=== PATIENT | male | born 1985 | race African-American/Black ===

== ENCOUNTER 2017-09-08 11:12 | Emergency (ER) | payer MEDICAID ==
--- NOTE | 2017-09-08 11:44 | ER Document Report ---
ED General - General Chief Complaint: Bloody Stools Stated Complaint: BLOOD IN STOOL Time Seen by Provider: 09/08/17 11:35 Notes: 32-year-old male here with complaints of blood in his stools that he noted earlier today. He states that he saw some small streaks of blood in his stool and on the toilet paper however there was no blood in the toilet bowl/water. He denies any abdominal pain nausea vomiting diarrhea constipation. He also complains of some frequent urination but no dysuria hematuria discharge pain ongoing for the past 2 months. He states he went to an urgent care and they tested his urine but "I did not hear anything from them". He has not yet seen a urologist. He is sexually active with one female partner and denies any prior personal history of STDs. He denies his partner has any STDs. TRAVEL OUTSIDE OF THE [place] IN LAST 30 DAYS: No - Related Data Allergies/Adverse Reactions: No Known Allergies Allergy (Verified 09/08/17 11:34) Past Medical History - Social History Smoking Status: Current Every Day Smoker Chew tobacco use (# tins/day): No Frequency of alcohol use: None Drug Abuse: Marijuana Family History: Reviewed & Not Pertinent Patient has suicidal ideation: No Patient has homicidal ideation: No Renal/ Medical History: Denies: Hx Peritoneal Dialysis Review of Systems - Review of Systems Notes: See history of present illness for pertinent positive review of systems; otherwise all review of systems have been reviewed and are negative Physical Exam - Vital signs Vitals: Temp Pulse Resp BP Pulse Ox 98.2 F 63 16 146/81 H 100 09/08/17 11:16 09/08/17 11:16 09/08/17 11:16 09/08/17 11:16 09/08/17 11:16 - Notes Notes: PHYSICAL EXAMINATION: GENERAL: Well-appearing and in no acute distress. HEAD: Atraumatic, normocephalic. EYES: Pupils equal round and reactive to light, extraocular movements intact, sclera anicteric, conjunctiva are normal. ENT: nares patent, oropharynx clear without exudates. Moist mucous membranes. NECK: Normal range of motion, supple without lymphadenopathy LUNGS: CTAB and equal. No wheezes rales or rhonchi. HEART: Regular rate and rhythm without murmurs ABDOMEN: Soft, no tenderness. No facial grimacing/wincing upon palpation. No guarding, no rebound. GENITOURINARY: Patient declines genitourinary exam ANORECTAL: Patient declines a visual anal/rectal exam and digital rectal exam EXTREMITIES: Normal range of motion, no pitting edema. No cyanosis. NEUROLOGICAL: Cranial nerves grossly intact. Normal sensory/motor exams. PSYCH: Normal mood, normal affect. SKIN: Warm, Dry, normal turgor, no rashes or lesions noted Course - Re-evaluation Re-evalutation: 09/08/17 11:43 MEDICAL DECISION MAKING: Concern for internal hemorrhoid versus external hemorrhoid versus UTI Patient will not allow or anorectal exam Given history though, he likely has a nonthrombosed hemorrhoid Will check urinalysis rule out infection 09/08/17 12:55 UA negative and d/w pt these findings Patient understands and agrees to the plan of care - Vital Signs Vital signs: Temp Pulse Resp BP Pulse Ox 98.2 F 63 16 146/81 H 100 09/08/17 11:16 09/08/17 11:16 09/08/17 11:16 09/08/17 11:16 09/08/17 11:16 - Laboratory Laboratory results interpreted by me: 09/08/17 11:45 Urine Ascorbic Acid 40 H Discharge - Discharge Clinical Impression: Urinary frequency, Bloody stools Condition: Good Disposition: HOME, SELF-CARE Additional Instructions: You were seen in the emergency department at [facility]. You declined digital rectal exam. Use the stool softeners to decrease possible constipation. You did not have a urine infection. Please followup with your primary physician in the next few days for further management/evaluation. Please return to the emergency department for worsening of symptoms or any symptom that you deem to be concerning or life-threatening. Thank you for allowing us to be part of your care. This is your work/school note for your ER visit today. Prescriptions: Docusate Sodium [Colace 100 mg Capsule] 100 mg PO DAILY #30 capsule
[2017-09-08 12:27] LABS: APPEARANCE,URINE CLEAR; BILIRUBIN,URINE NEGATIVE (NEGATIVE); COLOR,URINE YELLOW; GLUCOSE, URINE NEGATIVE (NEGATIVE); KETONES,URINE NEGATIVE (NEGATIVE); LEUKOCYTE ESTERASE,URINE NEGATIVE (NEGATIVE); NITRITE,URINE NEGATIVE (NEGATIVE); PROTEIN,URINE NEGATIVE (NEGATIVE); URINE SPECIFIC GRAVITY 1.027; UROBILINOGEN,URINE NEGATIVE mg/dL (<2.0)
[2017-09-08 13:07] VITALS: BP 140/78
== END 2017-09-08 13:07 | disposition home or self-care (01) ==
LOC: ER 11:12
DX: K92.1 Melena (principal); R35.0 Frequency of micturition; F17.200 Nicotine dependence, unspecified, uncomplicated; F12.10 Cannabis abuse, uncomplicated
CPT/HCPCS: 81001; 82962; 99283

== ENCOUNTER 2017-11-12 08:44 | Emergency (ER) | payer MEDICAID ==
[2017-11-12] MEDS ORDERED: IBUPROFEN 800 MG TABLET PO ONE (09:17)
--- NOTE | 2017-11-12 09:22 | ER Document Report ---
ED Extremity Problem, Lower - General Chief Complaint: Leg Pain Stated Complaint: LEG PAIN Time Seen by Provider: 11/12/17 09:13 Mode of Arrival: Ambulatory Information source: Patient Notes: 32-year-old male presents to ED for complaint of left lower leg pain. He states that of last week today is Saturday he is leg was run over by a forklift. He states he continues to have some throbbing pain in his leg. Patient is alert and oriented respirations regular and unlabored speaks with full sentences and is able to ambulate with a steady gait. Patient states he can ambulate but is very painful. TRAVEL OUTSIDE OF THE [place] IN LAST 30 DAYS: No - HPI Patient complains to provider of: Injury, Pain Location: Leg Occurred: - of last Where: Outdoors Onset/Duration: Persistent Quality of pain: Throbbing Severity: Moderate Pain Level: 3 Context: Other Recent injury: Yes - Ran over by a forklift Associated symptoms: Painful ambulation Exacerbated by: Hanging down, Movement, Walking Relieved by: Elevation, Ice, Rest - Related Data Allergies/Adverse Reactions: No Known Allergies Allergy (Verified 11/12/17 09:16) Past Medical History - General Information source: Patient - Social History Smoking Status: Former Smoker Cigarette use (# per day): No Chew tobacco use (# tins/day): No Smoking Education Provided: No Frequency of alcohol use: None Drug Abuse: None Lives with: Spouse/Significant other Family History: Reviewed & Not Pertinent Patient has suicidal ideation: No Patient has homicidal ideation: No - Past Medical History Cardiac Medical History: Reports: None Pulmonary Medical History: Reports: None EENT Medical History: Reports: None Neurological Medical History: Reports: None Endocrine Medical History: Reports: None Renal/ Medical History: Reports: None GI Medical History: Reports: None Musculoskeltal Medical History: Reports Hx Musculoskeletal Trauma Skin Medical History: Reports None Psychiatric Medical History: Reports: None Traumatic Medical History: Reports: Hx Fractures - PT finger Infectious Medical History: Reports: None Surgical Hx: Negative Past Surgical History: Reports: None Review of Systems - Review of Systems Musculoskeletal: Other - Pain to the left lower leg between the knee and ankle no pain to the foot or ankle no bruising no swelling Physical Exam - Vital signs Vitals: Temp Pulse Resp BP Pulse Ox 98.6 F 62 12 129/75 H 100 11/12/17 08:49 11/12/17 08:49 11/12/17 08:49 11/12/17 08:49 11/12/17 08:49 - Extremities General upper extremity: Normal inspection, Nontender, Normal color, Normal ROM , Normal temperature General lower extremity: Normal inspection, Normal color, Normal temperature. No: Antonio's sign Calf: Tender. No: Ecchymosis, Instability, Laceration, Unable to bear weight - Painful to ambulate Ankle: Normal, Nontender Foot: Normal, Nontender Course - Re-evaluation Re-evalutation: 11/12/17 21:30 X-ray discussed with patient and written report of x-ray given to patient. Patient was instructed to follow-up with his primary doctor to use elevation ice for his pain. Patient verbalized understanding of instructions and agreement with treatment plan. - Vital Signs Vital signs: Temp Pulse Resp BP Pulse Ox 98.1 F 55 L 16 136/71 H 100 11/12/17 10:42 11/12/17 10:42 11/12/17 10:42 11/12/17 10:42 11/12/17 10:42 - Diagnostic Test Radiology reviewed: Image reviewed, Reports reviewed Discharge - Discharge Clinical Impression: Contusion of left lower leg, initial encounter Condition: Stable Disposition: HOME, SELF-CARE Additional Instructions: CONTUSION: Your injury has resulted in a contusion -- a crushing of the deep tissues. No injury to important structures was detected during the physician's exam. Contusions vary in the amount of pain they cause, and in the length of time required for healing. Typically, the area will become bruised, and will remain painful to touch for two or three weeks. However, most patients are back to working and playing within a few days. After the initial period of rest and cold-packs, your symptoms (together with the doctor's recommendations) will determine how rapidly you can get back to full activity. Usually this means "do what feels okay, but don't do things that hurt." If re-examination was recommended, it's important to follow up as instructed. Call the doctor or return any time if pain increases, if swelling becomes severe, if you develop numbness or weakness in an injured extremity, or if any other alarming symptoms occur. USE OF TYLENOL (ACETAMINOPHEN): Acetaminophen may be taken for pain relief or fever control. It's much safer than aspirin, offering a wider range of "safe" dosages. It is safe during . Some brand names are Tylenol, Panadol, Datril, Anacin 3, Tempra, and Liquiprin. Acetaminophen can be repeated every four hours. The following are maximum recommended dosages: WEIGHT Dose Drops Elixir Chewable( 80mg) (LBS.) drprs=droppers tsp=teaspoon 6 40 mg 0.4 ml (1/2) 6-11 80 mg 0.8 ml (full) tsp 1 tab 12-16 120 mg 1 1/2 drprs 3/4 tsp 1 1/2 tabs 17-23 160 mg 2 drprs 1 tsp 2 tabs 24-30 240 mg 3 drprs 1 1/2 tsp 3 tabs 30-35 320 mg 2 tsp 4 tabs 36-41 360 mg 2 1/4 tsp 4 1/2 tabs 42-47 400 mg 2 1/2 tsp 5 tabs 48-53 480 mg 3 tsp 6 tabs 54-59 520 mg 3 1/4 tsp 6 1/2 tabs 60-64 560 mg 3 1/2 tsp 7 tabs 65-70 600 mg 3 3/4 tsp 7 1/2 tabs 71-76 640 mg 4 tsp 8 tabs 77-82 720 mg 4 1/2 tsp 9 tabs 83-88 800 mg 5 tsp 10 tabs >89 pounds or adults 650 mg to 900 mg Acetaminophen can be repeated every four hours. Maximum dose not to exceed 4000 mg a day. These maximum recommended dosages are slightly higher than the dosages written on the product container, but these dosages are very safe and below the toxic dosage for acetaminophen. ICE & ELEVATION: Apply ice packs frequently against the painful area. Many different schedules are recommended, such as "20 minutes on, 20 minutes off" or "one hour ice, two hours rest." If you need to work, you may need to go longer between ice treatments. You should plan to have the area ice packed AT LEAST one- fourth of the time. The ice should be applied over the wrap, tape, or splint, or over a layer of cloth -- not directly against the skin. Some ice bags have a built-in cloth and can be put directly on the skin. Your injured part should be elevated as much as possible over the next 48 hours. Try to keep the injury above the level of the heart. Avoid use of the injured area. Elevation and rest will decrease the swelling. USE OF [id number] IBUPROFEN: Ibuprofen (Advil, Nuprin, Medipren, Motrin IB) is a medication for fever and pain control. In addition, it has anti- inflammatory effects which may be beneficial, especially in the treatment of injuries. It's best to take ibuprofen with food. Persons with ulcer disease or allergy to aspirin should notify their physician of this before taking ibuprofen. Ibuprofen can be given every four to six hours, for a total of four doses daily. Age Pain or fever dose Antiinflammatory dose 6-8 yr 200 mg (1 tab) 200 mg (1 tab) 9-11 yr 200 mg (1 tab) 200-400 mg (1-2 tab) 11-14 yr 200-400 mg (1-2 tab) 400 mg (2 tab) 15-adult 400 mg (2 tab) 600 mg (3 tab) FOLLOW-UP CARE: If you have been referred to a physician for follow-up care, call the physician s office for an appointment as you were instructed or within the next two days. If you experience worsening or a significant change in your symptoms, notify the physician immediately or return to the Emergency Department at any time for re-evaluation. Forms: Elevated Blood Pressure, Return to Work Referrals: [facility] [Provider Group] - Follow up as needed
--- NOTE | 2017-11-12 10:09 | RADIOLOGY REPORT (SQ) ---
EXAM DESCRIPTION: TIBIA FIBULA LEFT COMPLETED DATE/TIME: 11/12/2017 9:37 am REASON FOR STUDY: pain ran over by fork lift COMPARISON: None. NUMBER OF VIEWS: Two views. TECHNIQUE: Two radiographic images acquired of the left tibia and fibula to include the knee and ank le in at least one projection. LIMITATIONS: None. FINDINGS: MINERALIZATION: Normal. BONES: No acute fracture or dislocation. No worrisome bone lesions. SOFT TISSUES: No obvious swelling or foreign body. OTHER: No other significant finding. IMPRESSION: NEGATIVE STUDY OF THE LEFT TIBIA AND FIBULA. NO RADIOGRAPHIC EVIDENCE OF ACUTE INJURY. TECHNICAL DOCUMENTATION: JOB ID: [id number] [employer]- All Rights Reserved Reading location - IP/workstation name: [email or web address]
[2017-11-12 10:43] VITALS: BP 136/71
== END 2017-11-12 10:47 | disposition home or self-care (01) ==
LOC: ER 08:44
DX: S80.12XA Contusion of left lower leg, initial encounter (principal); X58.XXXA Exposure to other specified factors, initial encounter
CPT/HCPCS: 99283; 73590; J3490

== ENCOUNTER 2018-01-01 17:11 | Emergency (ER) | payer MEDICAID ==
[2018-01-01 17:16] VITALS: BP 124/83
[2018-01-01] MEDS ORDERED: CEFTRIAXONE INJ 250 MG VIAL IM ONE (17:40)
[2018-01-01] MEDS ORDERED: LIDOCAINE 1% INJ-PF (10 MG/ML) 30 ML SDV INJ ONE (17:40)
[2018-01-01] MEDS ORDERED: AZITHROMYCIN 250 MG TABLET PO ONE (17:40)
[2018-01-01] MEDS ORDERED: METRONIDAZOLE 500 MG TABLET PO ONE (17:40)
--- NOTE | 2018-01-01 17:43 | ER Document Report ---
HPI - HPI Patient complains to provider of: Concern about STD Onset: Other - Several weeks ago Quality of pain: No pain Pain Level: Denies Context: Patient states that he had intercourse with a female several weeks ago. Patient states that she was recently treated for an STD with Flagyl. Patient is uncertain what type of STD that she may have she was not forthcoming with him. Patient is concerned about possible STD although denies any symptoms. Patient denies any dysuria frequency or penile discharge. Patient denies any abnormal skin lesions to the genital area. Associated Symptoms: None Exacerbated by: Denies Relieved by: Denies Similar symptoms previously: No Recently seen / treated by doctor: No - ROS ROS below otherwise negative: Yes Systems Reviewed and Negative: Yes All other systems reviewed and negative - CONSTITUTIONAL Constitutional: DENIES: Fever - EENT EENT: DENIES: Sore Throat - GASTROINTESTINAL Gastrointestinal: DENIES: Abdominal Pain, Nausea, Patient vomiting - URINARY Urinary: DENIES: Dysuria, Urgency, Frequency - DERM Skin Color: Normal Skin Problems: None Past Medical History - General Information source: Patient - Social History Smoking Status: Never Smoker Frequency of alcohol use: None Drug Abuse: Marijuana Family History: Reviewed & Not Pertinent Renal/ Medical History: Denies: Hx Peritoneal Dialysis Musculoskeletal Medical History: Reports Hx Musculoskeletal Trauma Traumatic Medical History: Reports: Hx Fractures - PT finger Surgical Hx: Negative Vertical Provider Document - CONSTITUTIONAL Agree With Documented VS: Yes Exam Limitations: No Limitations General Appearance: WD/WN, No Apparent Distress - INFECTION CONTROL TRAVEL OUTSIDE OF THE [place] IN LAST 30 DAYS: No - HEENT HEENT: Atraumatic, Normal ENT Exam, Normocephalic - NECK Neck: Normal Inspection - RESPIRATORY Respiratory: Breath Sounds Normal, No Respiratory Distress - CARDIOVASCULAR Cardiovascular: Regular Rate, Regular Rhythm - GI/ABDOMEN Gastrointestinal: Abdomen Soft, Abdomen Non-Tender - BACK Back: Normal Inspection. negative: CVA Tenderness-Right, CVA Tenderness-Left - MUSCULOSKELETAL/EXTREMETIES Musculoskeletal/Extremeties: MAEW - NEURO Level of Consciousness: Awake, Alert, Appropriate Motor/Sensory: No Motor Deficit - DERM Integumentary: Warm, Dry, No Rash Course - Re-evaluation Re-evalutation: 01/01/18 17:42 Patient deferred genital examination - Vital Signs Vital signs: Temp Pulse Resp BP Pulse Ox 98.8 F 59 L 16 124/83 100 01/01/18 17:15 08/15/18 17:15 01/01/18 17:15 01/01/18 17:15 01/01/18 17:15 Discharge - Discharge Clinical Impression: Concern about STD in male without diagnosis Condition: Stable Disposition: HOME, SELF-CARE Instructions: Azithromycin ([facility]), Metronidazole ([facility]), Rocephin ([facility]) Additional Instructions: Return immediately for any new or worsening symptoms Followup with your primary care provider, call tomorrow to make a followup appointment Cultures are pending, we will call you if you need any different treatment. Follow-up with the health department or your primary care provider if you would like to have HIV testing performed Referrals: RADHA FOLEY MD [Primary Care Provider] - Follow up as needed
[2018-01-01 19:26] LABS: CHLAM PCR NOT DETECTED (NOT DETECT); GON PCR NOT DETECTED (NOT DETECT)
== END 2018-01-01 18:17 | disposition home or self-care (01) ==
LOC: ER 17:11
DX: Z20.2 Contact with and (suspected) exposure to infections with a predominantly sexual mode of transmission (principal)
CPT/HCPCS: 99283; 96372; 87491; 87591; Q0144; J3490 ×2; J0696

== ENCOUNTER 2018-08-11 08:08 | Day surgery (SDC) | payer MEDICAID ==
[~2018-08-11 08:08] MED LIST: PROPOFOL INJ 200 MG/20 ML VIAL IV ONE
[2018-08-11] MEDS ORDERED: PROPOFOL INJ 200 MG/20 ML VIAL IV ONE (09:19)
[2018-08-11 10:30] VITALS: BP 110/82
--- NOTE | 2018-08-11 13:37 | Operative Report ---
Operative Report DATE OF SURGERY: 08/11/18 Operative Report: The risks, benefits and alternatives of the procedure including the risk of bleeding, perforation requiring surgery have been explained to the patient in detail and informed consent has been obtained. Patient is brought back to the endoscopy suite and placed in a left, lateral decubital position. Timeout was called. Propofol medication is administered. A rectal examination is done which did not reveal any masses, tears or fissures. An Olympus video scope was introduced into the patient's rectum. The scope was then carefully advanced all the way to the cecum. Cecum was identified by the usual anatomical landmarks including the ileocecal valve as well as the appendiceal office. Photodocumentation was obtained. Scope was then sequentially pulled back via the various segments of the colon including the ascending colon, hepatic flexure, transverse colon, splenic flexure, descending colon and finally into the rectosigmoid portions of the colon. Retroflexion maneuver was performed. PREOPERATIVE DIAGNOSIS: Blood in stool POSTOPERATIVE DIAGNOSIS: Random biopsies taken in the terminal ileum to rule out Crohn's disease. Random biopsies taken on the right side of the colon to rule out colitis. Internal hemorrhoids. If continued bleeding will need EGD OPERATION: Colonoscopy with biopsy SURGEON: SAVANNAH DAIGLE ANESTHESIA: LMAC TISSUE REMOVED OR ALTERED: As noted above. COMPLICATIONS: None. ESTIMATED BLOOD LOSS: None. INTRAOPERATIVE FINDINGS: As noted above. PROCEDURE: Patient tolerated the procedure well. No immediate postprocedure complications are noted. Patient discharged in good condition. Discharge date 08/11/2018. Discharge diet: Regular. Discharge activity: Regular. 2-3-week follow-up to discuss findings. Patient is instructed call the office or proceed to the emergency room should there be any further proximal questions. I will wait on the pathology.
== END 2018-08-11 10:35 | disposition home or self-care (01) ==
LOC: END 08:08
PROVIDERS: ATTEND Internal Medicine Gastroenterology
DX: K52.9 Noninfective gastroenteritis and colitis, unspecified (principal); K64.8 Other hemorrhoids; K92.1 Melena; F17.210 Nicotine dependence, cigarettes, uncomplicated
CPT/HCPCS: 45380; 88305 ×2; J2704; 811